=== PATIENT | female | born 1965 | race Two or more races ===

== ENCOUNTER 2019-07-18 06:50 | Day surgery (SDC) | payer OTHER ==
[~2019-07-18 06:50] MED LIST: MICARDIS80 MG PO
== END 2019-07-18 18:15 | disposition home or self-care (01) ==
LOC: CIR.AMB 06:50
DX: D05.11 Intraductal carcinoma in situ of right breast (principal); D24.2 Benign neoplasm of left breast; D24.1 Benign neoplasm of right breast; L90.5 Scar conditions and fibrosis of skin